=== PATIENT | female | born 1995 | race Caucasian/White ===

== ENCOUNTER 2018-08-13 10:27 | Emergency (ER) | payer OTHER ==
[2018-08-13] MEDS: ACETAMINOPHEN 325 MG TAB PO (11:08)
[2018-08-13] MEDS: DEXAMETHASONE 4 MG TAB PO (11:11)
== END 2018-08-13 11:58 | disposition home or self-care (01) ==
LOC: FTE 10:27
DX: J02.9 Acute pharyngitis, unspecified (principal)
CPT/HCPCS: 87880; 99283